=== PATIENT | female | born 1990 | race Caucasian/White ===

== ENCOUNTER 2017-12-20 22:44 | Emergency (ER) | payer BC, OTHER ==
[2017-12-20 22:49] VITALS: BP 117/80; PULSE 92; TEMP 98; BMI 23.3
--- NOTE | 2017-12-20 22:49 | PDOC ---
History of Present Illness - General Chief Complaint: Nausea/Vomiting Stated Complaint: N/V/D Time Seen by Provider: 12/20/17 22:48 History Source: Patient Exam Limitations: No Limitations - History of Present Illness Initial Comments: 12/20/17 23:00 This is a healthy 27-year-old female who comes in complaining of approximately 2 hours now of nausea vomiting and diarrhea. Patient said symptoms began about 5 hours [place] [employer] [place] Patient denies history of similar symptoms in the past. Patient is complaining of some crampy upper abdominal pain that is worse prior to episodes of diarrhea and better after diarrhea. Patient last vomited shortly before coming to the ED. Patient otherwise denies any chest pain, shortness of breath, fevers or chills. Patient denies any back pain or urinary complaints. PAST MEDICAL HISTORY: no significant history PAST SURGICAL HISTORY: no significant history FAMILY HISTORY: no pertinant history SOCIAL HISTORY: Pt lives with family and is employed. MEDICATIONS: reviewed ALLERGIES: As per nursing notes ROS General: No fevers or chills, no weakness, no weight loss HEENT: No change in vision. No sore throat,. No ear pain CardioVascular: No chest pain or shortness of breath Respiratory:No cough, or wheezing. Gastrointestinal: + nausea, + vomiting, + diarrhea or constipation, No rectal bleeding Genitourinary: No dysuria, hematuria, or frequency Musculoskeletal: . No joint pain or swelling Neurologic: No headache, vertigo, dizziness or loss of consciousness Psychiatric: nor depression Skin: No rashes or easy bruising Endocrine: no increased thirst or abnormal weight change Allergic: no skin or latex allergy All other systems reviewed and normal Exam: General: Well-nourished well-developed individual, no acute distress HEENT: Throat: Normal, tonsils normal, no erythema or exudate Neck: Supple, no meningeal signs, no lymphadenopathy Eyes::Pupils equal reactive and round, extraocular motion intact Chest: Nontender to palpation Cardiac: S1-S2 normal, regular rate and rhythm, no murmurs rubs or gallops Respiratory: Lungs clear to auscultation bilateral Abdomen: Soft, nondistended, mildly increased bowel sounds with very mild diffuse tenderness with mild to moderate tenderness in the epigastric region there is no guarding or rebound. Extremities: Warm, dry, no cyanosis, clubbing, or edema Skin: No rashes Neuro: Alert and oriented x3, CN II - XII intact, nonfocal exam with normal strength, normal sensation, normal reflexes, normal gait, Psych: Normal mood and affect Reevaluation post IV fluids and medication patient feels much better abdominal pain nearly resolved. Patient well-hydrated and tolerating by mouth's. Patient discharged home Assessment and plan: This is a 27-year-old female comes in complaining of nausea vomiting and diarrhea. Patient given antiemetics and IV hydration. Symptoms resolved and patient discharged home Past History - Past Medical History Allergies/Adverse Reactions: Allergies Allergy/AdvReac Type Severity Reaction Status Date / Time No Known Allergies Allergy Unverified 12/20/17 22:48 Home Medications: Ambulatory Orders Hyoscyamine Odt [Levsin Odt -] 0.125 mg PO DAILY #7 tab.rapdis 12/20/17 Ondansetron [Zofran *Odt*] 8 mg SL TID PRN #12 od.tablet 12/20/17 *DC/Admit/Observation/Transfer Diagnosis at time of Disposition: Nausea vomiting and diarrhea - Discharge Dispostion Disposition: HOME Condition at time of disposition: Good Decision to Admit order: No - Prescriptions Prescriptions: Hyoscyamine Odt [Levsin Odt -] 0.125 mg PO DAILY #7 tab.rapdis Ondansetron [Zofran *Odt*] 8 mg SL TID PRN #12 od.tablet PRN Reason: Nausea - Referrals - Patient Instructions Printed Discharge Instructions: DI for Diarrhea and Traveler's Diarrhea -- Adult, DI for Vomiting -- Adult Additional Instructions: If you have any further nausea or vomiting you can take Zofran 1 tablet as often as 3 times a day. In addition to that you can also take an anti-spasmodic hyoscyamine one tablet once a day. Clear liquids only for the next 6 hours.. After that if you have had no further vomiting you may have bananas, rice, applesauce, or toast. If no further vomiting for another 8 hours you may have regular food. If you vomit again then nothing to eat or drink for 2 hours. then start back with the clear liquids. Return to the emergency department immediately with ANY new, persistent or worsening symptoms. You MUST call and follow up with your doctor tomorrow if not better. Please make sure your doctor reviews the results of your emergency evaluation. - Post Discharge Activity Forms/Work/School Notes: Back to Work
[2017-12-20] MEDS ORDERED: SODIUM CHLORIDE 1,000 ML IV ONE (22:55)
[2017-12-20] MEDS ORDERED: ONDANSETRON 4 MG/2 ML VIAL IVPB ONE (22:55)
[2017-12-20] MEDS ORDERED: HYOSCYAMINE SULFATE 0.125 MG *ODT PO ONE (22:56)
[2017-12-20] MEDS ORDERED: FAMOTIDINE 20 MG/50 ML IVPB 20 MG/50 ML MG IVPB ONE ×2 (23:00→23:01)
[2017-12-20] MEDS ORDERED: HYOSCYAMINE SULFATE 0.125 MG *ODT ONE (23:01)
[2017-12-20] MEDS ORDERED: ONDANSETRON 4 MG/2 ML VIAL ONE (23:01)
== END 2017-12-21 00:30 | disposition home or self-care (01) ==
LOC: FER 22:44
PROC: 3E033GC Introduction of Other Therapeutic Substance into Peripheral Vein, Percutaneous Approach (ICD-10-PCS; principal; 2017-12-20)
PROC: 3E0337Z Introduction of Electrolytic and Water Balance Substance into Peripheral Vein, Percutaneous Approach (ICD-10-PCS; 2017-12-20)
DX: R11.2 Nausea with vomiting, unspecified (principal); R19.7 Diarrhea, unspecified
CPT/HCPCS: 99283-25; J7030